=== PATIENT | male | born 1970 | race African-American/Black ===

== ENCOUNTER 2021-10-24 19:52 | Emergency (ER) | payer MEDICAID ==
[~2021-10-24] VITALS: Ht 175.3 cm; Wt 90.7 kg
[2021-10-24 20:24] VITALS: BP 163/89
--- NOTE | 2021-10-24 21:15 | NUR ---
TESTED POSITIVIE SATURDAY FOR COVID HAS TAKEN THERAFLU. PMH: RAJESH BENTLEY
--- NOTE | 2021-10-24 23:00 | NUR ---
NASAL SWAB OBTAINED AND SENT TO LAB
[2021-10-24 23:10] VITALS: BP 163/89
--- NOTE | 2021-10-24 23:10 | NUR ---
Patient discharged with v/s stable. Written and verbal after care instructions given and explained. Patient verbalized understanding. Ambulatory with steady gait. All questions addressed prior to discharge. Advised to follow up with PMD.
== END 2021-10-24 23:10 | disposition home or self-care (01) ==
LOC: MED 19:52
DX: U07.1 COVID-19 (principal); I10 Essential (primary) hypertension
CPT/HCPCS: 87635; 99283; C9803